=== PATIENT | male | born 1960 | race Caucasian/White ===

== ENCOUNTER 2023-04-22 19:21 | Emergency (ER) | payer OTHER, SELFPAY ==
[2023-04-22 19:26] VITALS: BP 139/110; PULSE 65; RESP 15; TEMP 36.8; O2SAT 99
--- NOTE | 2023-04-22 19:33 | ED.GENADUL_ITS ---
Discharge Plan Disposition Patient Disposition: Home Condition: Stable Discharge Details Clinical Impression: Laceration of finger, middle [facility] Nisha Tran Home Meds and New Rx's Prescriptions: Continued simvastatin 40 mg Tablet 40 mg PO 1XD propranolol 40 mg Tablet 40 mg PO 1XD [id number] 50-325-40 mg Capsule 1 cap PO 1XD sertraline 50 mg Tablet 50 mg PO 1XD gabapentin 300 mg Tablet 300 mg PO 2XD Discharge Instructions Instructions: Finger Laceration (ED), Skin Adhesive Care (ED) Additional Instructions: Keep clean and dry for the next 12 to 24 hours, after that you may wash under running soap and water. Pat dry. Allow to air dry at least 2 hours a day. Do not scrub or pick at the [place]. You were given a tetanus shot here today. Keep covered if working in the dirt. Return for any signs of infection including red streaks, drainage swelling or concerns. If it begins bleeding again you may apply pressure for approximately 15 minutes if you are unable to stop the bleeding after 15 minutes please return or be seen sooner. Please take Tylenol or Ibuprofen with food every 4-6 hours as needed for pain and swelling. Follow up with primary care provider in 3-5 days if needed. Return to ED sooner if any worsening or concerns. Increase oral fluids. Medical Decision Making 63-year-old male presents to the ER with a distal tip laceration of his right middle finger. He was doing dishes prior to arrival and cut his finger on a sharp knife. He applied bleeding stopped prior to arrival laceration continued to ooze. Bleeding controlled upon arrival with pressure. He does have a past medical history of hypertension, headaches, high cholesterol, See physical exam. Approximately 0.5 cm laceration to the distal tip of middle finger. Upon reevaluation after ED staff cleaned wound bleeding has stopped. Laceration was cleaned with chlorhexidine, skin affix tissue adhesive applied wound well approximated. Discussed home care with patient and family who v erbalized understanding. Discussed tricked return instructions. Nonadherent dressing applied prior to discharge by refrigerating technician staff [place]. This text was generated using [employer] system, please disregard any oddities of phrase or misspellings. HPI General Mode of arrival: ambulatory . Date/Time Provider Initiated Documentation: 04/22/23 19:25 . Limitations to Documentation: no limitations . Information obtained by: patient, family, RN notes reviewed and old records reviewed . HPI Narrative: 63-year-old male presents to the ER with a distal tip laceration of his right middle finger. He was doing dishes prior to arrival and cut his finger on a sharp knife. He applied bleeding stopped prior to arrival laceration continued to ooze. Bleeding controlled upon arrival with pressure. He does have a past medical history of hypertension, headaches, high choles terol, Related Data Home Medications Medication Instructions Recorded Confirmed [id number] 50 1 cap PO 1XD 04/22/23 04/22/23 mg-325 mg-40 mg capsule gabapentin 300 mg tablet 300 mg PO 2XD 04/22/23 04/22/23 propranolol 40 mg tablet 40 mg PO 1XD 04/22/23 04/22/23 sertraline 50 mg tablet 50 mg PO 1XD 04/22/23 04/22/23 simvastatin 40 mg tablet 40 mg PO 1XD 04/22/23 04/22/23 Allergies Allergy/AdvReac Type Severity Reaction Status Date / Time No Known Allergies Allergy Unverified 04/22/23 19:30 General Stated Complaint: Laceration COREY: 3 Review of Systems Integumentary/Breasts Skin/Breast: Reports as per HPI and Reports wounds (Laceration middle finger right hand) PFS All Active Problems (Updated 04/22/23 @ 20:01 by Nisha Tran NP) Laceration of finger, middle (Acute) Social History Smoking risk assessment performed?: No Housing: house Do you feel safe at home: Yes Do you feel safe in your relationship?: Yes Exam Extrem General: normal to inspection and full ROM Right upper extremity: hand Details: normal capillary refill, neuromotor exam normal, neurosensory exam normal, vascular exam Details: radial pulse present, ulnar pulse present and normal capillary refill, normal ROM of fingers and laceration 3rd digit palmar aspect distal Details: flap, actively bleeding (Bleeding controlled after pressure dressing and wound cleaning), superficial, with motor nerve function intact and with sensation intact; no unusual warmth, no crepitus and no foreign bodies Hand/finger images: 1. Approximately 0.5 cm flap noted to the distal tip of finger. Bleeding controlled after initial presentation with pressure. Course Vital Signs Vital signs: Vital Signs Temperature 36.8 C 04/22/23 19:26 Pulse 65 04/22/23 19:26 Respiratory Rate 15 04/22/23 19:26 Blood Pressure 139/110 H 04/22/23 19:26 Pulse Oximetry 99 04/22/23 19:26 Temperature 36.8 C 04/22/23 19:26 Temperature Source Tympanic 04/22/23 19:26 Pulse 65 04/22/23 19:26 Respiratory Rate 15 04/22/23 19:26 Blood Pressure 139/110 H 04/22/23 19:26 Blood Pressure Position Sitting 04/22/23 19:26 Pulse Oximetry 99 04/22/23 19:26 Oxygen Delivery Method Room Air 04/22/23 19:26 Oxygen Flow Rate 0 04/22/23 19:26 Pain Level 5 04/22/23 19:26
== END 2023-04-22 20:46 | disposition home or self-care (01) ==
PROVIDERS: Emergency Provider Registered Nurse Emergency
DX: S61.212A Laceration without foreign body of right middle finger without damage to nail, initial encounter (principal); W26.0XXA Contact with knife, initial encounter
CPT/HCPCS: 90471; 99284